=== PATIENT | female | born 1990 | race African-American/Black ===

== ENCOUNTER 2018-04-19 23:07 | Emergency (ER) | payer MEDICAID ==
[2018-04-20] MEDS ORDERED: IBUPROFEN 600 MG TABLET PO ONE (01:10)
[2018-04-20] MEDS ORDERED: CIPROFLOXACIN HCL/DEXAMETH OTIC DROP 7.5 ML AS ONE (01:10)
--- NOTE | 2018-04-20 01:15 | ER Document Report ---
ED ENT - General Chief Complaint: Ear Pain Stated Complaint: EAR PAIN Time Seen by Provider: 04/20/18 01:05 Mode of Arrival: Ambulatory Information source: Patient - HPI Patient complains to provider of: Ear problem Notes: Patient is here with complaints of left ear pain. The pain is been present for the last few days. Pain is worse with movement of the ear. No injury. No fever. No recent URI. She denies any nausea, vomiting, diarrhea. No dizziness. She has had an occasional headache associated with this. No significant headache now. No blurred or loss vision. No unilateral numbness, to, weakness. She denies any recent swimming. No other complaints at this time. - Related Data Allergies/Adverse Reactions: No Known Allergies Allergy (Unverified 04/19/18 23:10) Past Medical History - Social History Smoking Status: Unknown if Ever Smoked Family History: Reviewed & Not Pertinent Review of Systems - Review of Systems -: Yes All other systems reviewed and negative Physical Exam - Vital signs Vitals: Temp Pulse Resp BP Pulse Ox 98.8 F 53 L 14 130/72 H 100 04/20/18 00:04 04/20/18 00:04 04/20/18 00:04 04/20/18 00:04 04/20/18 00:04 - Notes Notes: GENERAL: alert, cooperative, nontoxic, no distress. HEAD: normocephalic, atraumatic EYES: conjunctiva pink without discharge, no external redness or swelling. EARS: no external swelling, no external redness, no mastoid redness, swelling, tenderness. Swelling and redness to the left ear canal with tenderness to palpation of the left tragus. TMs pearly zepeda, no redness, no bulging, normal landmarks, no perforation. Preauricular lymphadenopathy noted. NOSE: atraumatic, no external swelling. clear rhinorrhea noted. MOUTH/THROAT: mucous membranes moist and pink, posterior pharynx without erythema, swelling, exudate. No trismus or drooling. NECK: soft, supple, full range of motion, no meningismus. CHEST: no distress, lungs clear and equal throughout. No wheezing, rales, rhonchi. CARDIAC: regular rate and rhythm, no murmur, normal capillary refill, normal pulses. No peripheral edema noted. BACK: full range of motion, no CVA tenderness. EXTREMITIES: full range of motion of all extremities. No redness, no swelling. NEURO: alert and oriented A&O3, no focal deficits, full range of motion of all extremities. PYSCH: appropriate mood, affect. Patient is cooperative. SKIN: pink, warm, dry, no rash. Course - Re-evaluation Re-evalutation: 04/20/18 01:12 Patient is nontoxic appearing with stable vitals. Patient is here with complaints of left ear pain. On exam she is noted to have a left otitis externa. No otitis media. No perforation. No sign of mastoiditis. She is a febrile and nontoxic. Patient was given ibuprofen and will be given Ciprodex for her ear. Follow-up if not better in the next 3-5 days, sooner for worsening pain, fever, redness or swelling to the outside of the ear, persistent vomiting, or for any further concerns. The patient's emergency department workup and current diagnosis were explained to the patient and or family. Follow-up instructions were provided. Medications if prescribed were discussed. Instructions for when to return to the emergency department including specific worrisome symptoms were discussed with the patient and/or family. The patient is noted to have elevated blood pressure during today's emergency department visit. The patient was informed of this finding. The patient was instructed that this may be related to pre-hypertension and requires further evaluation with a primary care provider. The patient has no hypertensive symptoms at this time. - Vital Signs Vital signs: Temp Pulse Resp BP Pulse Ox 98.8 F 53 L 14 130/72 H 100 04/20/18 00:04 04/20/18 00:04 04/20/18 00:04 04/20/18 00:04 04/20/18 00:04 Discharge - Discharge Clinical Impression: Left otitis externa Qualifiers: Otitis externa type: diffuse Chronicity: acute Qualified Code(s): H60.312 - Diffuse otitis externa, left ear Condition: Stable Disposition: HOME, SELF-CARE Instructions: Use of Ear Drops ([facility]), Otitis Externa ([facility]), Oral Narcotic Medication ([facility]) Additional Instructions: Take medication as prescribed. Do not put anything in her ear. Follow-up if not improving in the next 3-5 days, sooner for worsening pain, fever, numbness, tingling, weakness, persistent vomiting, redness, swelling to the outside of the ear, or for any further concerns. Your blood pressure was elevated during today's visit. Have this rechecked with your doctor. The medication you were prescribed today may cause drowsiness. Do not drive or operate heavy machinery while taking this medication. Prescriptions: Ciprofloxacin HCl/Dexameth [Ciprodex Otic Suspension 7.5 ml Bottle] 4 drop OT BID #1 bottle Hydrocodone/Acetaminophen [[place] 5-325 mg Tablet] 2 tab PO Q6H PRN #8 tab PRN Reason: Forms: Elevated Blood Pressure, Smoking Cessation Education Referrals: FLORY BURR MD [AML ANALYST] - Follow up as needed BALDEMAR BUNCH DO [ASSOCIATE] - Follow up as needed [facility] [Provider Group] - Follow up as needed
[2018-04-20 01:45] VITALS: BP 129/83
== END 2018-04-20 01:45 | disposition home or self-care (01) ==
LOC: ER 23:07
DX: H60.312 Diffuse otitis externa, left ear (principal)
CPT/HCPCS: 99282; J3490 ×2

== ENCOUNTER 2018-11-10 07:47 | Emergency (ER) | payer MEDICAID ==
[2018-11-10] MEDS ORDERED: CEFTRIAXONE INJ 250 MG VIAL IM ONE (08:42)
[2018-11-10] MEDS ORDERED: LIDOCAINE 1% INJ-PF (10 MG/ML) 30 ML SDV INJ ONE (08:42)
[2018-11-10] MEDS ORDERED: AZITHROMYCIN 250 MG TABLET PO ONE (08:43)
[2018-11-10 08:58] LABS: APPEARANCE,URINE SLIGHTLY-CLOUDY; BILIRUBIN,URINE NEGATIVE (NEGATIVE); COLOR,URINE YELLOW; GLUCOSE, URINE NEGATIVE (NEGATIVE); KETONES,URINE NEGATIVE (NEGATIVE); LEUKOCYTE ESTERASE,URINE SMALL (NEGATIVE); NITRITE,URINE NEGATIVE (NEGATIVE); PROTEIN,URINE NEGATIVE (NEGATIVE); UROBILINOGEN,URINE NEGATIVE mg/dL (<2.0)
--- NOTE | 2018-11-10 08:58 | ER Document Report ---
HPI - HPI Time Seen by Provider: 11/10/18 08:11 Pain Level: Denies Notes: Patient is an otherwise healthy 20-year-old female who presents with chief complaints of possible STD exposure. She states that her boyfriend called her and told her that he was seen and treated for either chlamydia or gonorrhea. She denies having any abnormal vaginal discharge or pelvic pain. - CONSTITUTIONAL Constitutional: DENIES: Fever, Chills - REPRODUCTIVE Reproductive: DENIES: : Past Medical History - General Information source: Patient - Social History Smoking Status: Never Smoker Chew tobacco use (# tins/day): No Frequency of alcohol use: None Drug Abuse: None Family History: Reviewed & Not Pertinent Patient has suicidal ideation: No Patient has homicidal ideation: No - Medical History Medical History: Negative Renal/ Medical History: Denies: Hx Peritoneal Dialysis Surgical Hx: Negative - Immunizations Immunizations up to date: Yes Vertical Provider Document - CONSTITUTIONAL Notes: PHYSICAL EXAMINATION: GENERAL: Well-appearing, well-nourished and in no acute distress. HEAD: Atraumatic, normocephalic. EYES: Pupils equal round extraocular movements intact, conjunctiva are normal. ENT: Nares patent NECK: Normal range of motion LUNGS: No respiratory distress Musculoskeletal: Normal range of motion NEUROLOGICAL: Normal speech, normal gait. PSYCH: Normal mood, normal affect. SKIN: Warm, Dry, normal turgor, no rashes or lesions noted. - INFECTION CONTROL TRAVEL OUTSIDE OF THE [place] IN LAST 30 DAYS: No Course - Re-evaluation Re-evalutation: 11/10/18 08:56 Patient will be treated prophylactically for both chlamydia and gonorrhea. Will call patient if results are positive. Patient verbalizes understanding of abstinence for the next 7 days. - Vital Signs Vital signs: Temp Pulse Resp BP Pulse Ox 97.8 F 56 L 16 121/71 99 11/10/18 07:51 11/10/18 07:51 11/10/18 07:51 11/10/18 07:51 11/10/18 07:51 Discharge - Discharge Clinical Impression: Exposure to STD Condition: Stable Disposition: HOME, SELF-CARE Additional Instructions: You have been treated for possible exposure to chlamydia and gonorrhea. The results of your tests will take approximately 2 hours to come back. I will call you this afternoon if they are positive. Please refrain from unprotected sexual intercourse for at least 7 days. Please assure that your partner has received appropriate treatment. You may follow-up with the health department for additional STD testing. Referrals: BALDEMAR RUIZ PA-C [Primary Care Provider] - Follow up as needed
[2018-11-10 09:15] VITALS: BP 119/84
[2018-11-10 10:28] LABS: CHLAM PCR NOT DETECTED (NOT DETECT); GON PCR DETECTED (NOT DETECT)
== END 2018-11-10 09:15 | disposition home or self-care (01) ==
LOC: ER 07:47
DX: Z20.2 Contact with and (suspected) exposure to infections with a predominantly sexual mode of transmission (principal)
CPT/HCPCS: 99283; 96372; 81001; 87491; 87591; Q0144; J3490; J0696

== ENCOUNTER 2018-11-26 04:20 | Emergency (ER) | payer MEDICAID ==
--- NOTE | 2018-11-26 04:40 | ER Document Report ---
ED General - General Chief Complaint: ETOH Abuse Stated Complaint: ALTERED MENTAL STATUS Time Seen by Provider: 11/26/18 04:39 Mode of Arrival: Ambulatory Information source: Patient Cannot obtain history due to: Intoxicated Notes: Patient is a 28-year-old female, currently 7 weeks , who presents with alcohol intoxication. Patient denies abdominal pain, reports only drinking "liquor," denies drug use. She denies vaginal bleeding or discharge. TRAVEL OUTSIDE OF THE [place] IN LAST 30 DAYS: No - HPI Onset: Just prior to arrival Onset/Duration: Sudden Quality of pain: No pain Severity: Mild Pain Level: Denies Associated symptoms: Drooling Exacerbated by: Denies Relieved by: Denies Similar symptoms previously: No Recently seen / treated by doctor: No - Related Data Allergies/Adverse Reactions: No Known Allergies Allergy (Unverified 04/19/18 23:10) Past Medical History - General Information source: Patient Cannot obtain history due to: Intoxicated - Social History Smoking Status: Unknown if Ever Smoked Chew tobacco use (# tins/day): No Frequency of alcohol use: Social Drug Abuse: None Lives with: Family Family History: Reviewed & Not Pertinent Patient has suicidal ideation: No Patient has homicidal ideation: No - Past Medical History Cardiac Medical History: Reports: None Pulmonary Medical History: Reports: None EENT Medical History: Reports: None Neurological Medical History: Reports: None Endocrine Medical History: Reports: None Renal/ Medical History: Reports: None. Denies: Hx Peritoneal Dialysis Malignancy Medical History: Reports: None GI Medical History: Reports: None Musculoskeletal Medical History: Reports None Skin Medical History: Reports None Psychiatric Medical History: Reports: None Traumatic Medical History: Reports: None Infectious Medical History: Reports: None Surgical Hx: Negative Past Surgical History: Reports: None - Immunizations Immunizations up to date: Yes Hx Diphtheria, Pertussis, Tetanus Vaccination: Yes History of Influenza Vaccine for 08/2017 - 01/2018 Season: Unknown Review of Systems - Review of Systems Constitutional: No symptoms reported, Other - Intoxicated EENT: No symptoms reported Cardiovascular: No symptoms reported Respiratory: No symptoms reported Gastrointestinal: No symptoms reported Genitourinary: No symptoms reported Female Genitourinary: No symptoms reported Musculoskeletal: No symptoms reported Skin: No symptoms reported Hematologic/Lymphatic: No symptoms reported Neurological/Psychological: No symptoms reported -: Yes All other systems reviewed and negative Physical Exam - Vital signs Vitals: Pulse Resp BP Pulse Ox 89 24 H 113/73 100 11/26/18 04:21 11/26/18 04:21 11/26/18 04:21 11/26/18 04:21 Interpretation: Normal - Notes Notes: Well-appearing in no acute distress - General General appearance: Appears well, Alert, Other - Intoxicated but easily arousable In distress: None - HEENT Head: Normocephalic, Atraumatic Eyes: Normal Pupils: PERRL - Respiratory Respiratory status: No respiratory distress Chest status: Nontender Breath sounds: Normal Chest palpation: Normal - Cardiovascular Rhythm: Regular Heart sounds: Normal auscultation Murmur: No - Abdominal Inspection: Normal Distension: No distension Bowel sounds: Normal Tenderness: Nontender Organomegaly: No organomegaly - Rectal Notes: Deferred - Genitourinary Notes: Deferred - Back Back: Normal, Nontender - Extremities General upper extremity: Normal inspection, Nontender, Normal color, Normal ROM, Normal temperature General lower extremity: Normal inspection, Nontender, Normal color, Normal ROM, Normal temperature, Normal weight bearing. No: Katerina's sign - Neurological Neuro grossly intact: Yes Cognition: Normal Orientation: AAOx4 Hortencia Coma Scale Eye Opening: Spontaneous [place] Coma Scale Verbal: Oriented [place] Coma Scale Motor: Obeys Commands Hortencia Coma Scale Total: 15 Speech: Normal Motor strength normal: LUE, RUE, LLE, RLE Sensory: Normal - Psychological Associated symptoms: Normal affect, Normal mood - Skin Skin Temperature: Warm Skin Moisture: Dry Skin Color: Normal Course - Re-evaluation Re-evalutation: 11/26/18 05:18 Patient is clearly intoxicated but is arousable. She reports being aware that she is and drank alcohol anyway. Will give IV fluids, obtain labs, and reassess for discharge when the patient is sober or has a responsible alliance party. 11/26/18 06:35 Labs still pending. Plan is to medically clear patient once she has been observed and is sober. Signout has been given to Dr. Flores. - Vital Signs Vital signs: Temp Pulse Resp BP Pulse Ox 97.7 F 89 24 H 113/73 100 11/26/18 04:30 11/26/18 04:21 11/26/18 04:21 11/26/18 04:21 11/26/18 04:21 - Laboratory Result Diagrams: 11/26/18 04:22 11/26/18 04:22 Laboratory results interpreted by me: 11/26/18 11/26/18 04:22 04:22 Lymphocytes % 47.3 H Beta HCG, Quant 2663.50 H Acetaminophen < 10 L - EKG Interpretation by Me EKG shows normal: Sinus rhythm Rate: Normal Rhythm: NSR [place]/QRS: No: Right axis deviation, Left axis deviation, RBBB, LBBB, IVCD, LAHB/LAFB, LPHB/LPFB, Bifasicular block P Waves: No: ANNELISE, LAE, Absent, AV Dissociation, Other Heart block present: No: 1st Degree, Mobitz 1, Mobitz 2, CHB (3rd degree block) When compared to previous EKG there are: Previous EKG unavailable - Transfer of Care Care transferred to following provider: Dr. Flores Notes: 11/26/18 06:35 Await labs, urine, and reassess the patient when sober and back to normal mental status. Discharge - Discharge Clinical Impression: Alcohol abuse affecting Qualifiers: Trimester: first trimester Qualified Code(s): O99.311 - Alcohol use complicating , first trimester; F10.10 - Alcohol abuse, uncomplicated Condition: Good Referrals: BALDEMAR RUIZ PA-C [Primary Care Provider] - Follow up as needed
[2018-11-26] MEDS ORDERED: NORMAL SALINE 1000 ML 1,000 ML IV ONE (05:22)
[2018-11-26 05:40] LABS: ABSOLUTE EOSINOPHILS # (AUTO) 0.2 10^3/uL (0.0-0.6); ABSOLUTE LYMPHOCYTES (AUTO) 4.6 10^3/uL (0.5-4.7); ABSOLUTE MONOCYTES (AUTO) 0.7 10^3/uL (0.1-1.4); ABSOLUTE NEUT (AUTO) 4.1 10^3/uL (1.7-8.2); BASOPHILS % (AUTO) 0.4 % (0-2); EOSINOPHILS % (AUTO) 1.9 % (0-6); HEMATOCRIT 39.7 % (36.0-47.0); HEMOGLOBIN 13.4 g/dL (12.0-15.5); LYMPHOCYTES % (AUTO) 47.3 % (13-45); MEAN CORPUSCULAR HEMOGLOBIN 29.2 pg (27.0-33.4); MEAN CORPUSCULAR HGB CONC 33.8 g/dL (32.0-36.0); MEAN CORPUSCULAR VOLUME 86 fl (80-97); MONOCYTES % (AUTO) 7.6 % (3-13); PLATELET COUNT 310 10^3/uL (150-450); RED BLOOD COUNT 4.59 10^6/uL (3.72-5.28); RED CELL DISTRIBUTION WIDTH 13.4 % (11.5-14.0); SEGMENTED NEUTROPHILS % (AUTO) 42.8 % (42-78); TOTAL CELLS COUNTED % (AUTO) 100 %; WHITE BLOOD COUNT 9.6 10^3/uL (4.0-10.5)
[2018-11-26 06:14] LABS: ALANINE AMINOTRANSFERASE 23 U/L (9-52); ALBUMIN 4.6 g/dL (3.5-5.0); ALCOHOL 164 mg/dL (NONE DETECTED); ALKALINE PHOSPHATASE 62 U/L (38-126); ANION GAP 13 (5-19); ASPARTATE AMINO TRANSFERASE 26 U/L (14-36); BILIRUBIN,DIRECT 0.3 mg/dL (0.0-0.4); BILIRUBIN,TOTAL 1.2 mg/dL (0.2-1.3); BLOOD UREA NITROGEN 17 mg/dL (7-20); CALCIUM 9.3 mg/dL (8.4-10.2); CARBON DIOXIDE 24 mmol/L (22-30); CHLORIDE 105 mmol/L (98-107); GLUCOSE 95 mg/dL (75-110); POTASSIUM 4.1 mmol/L (3.6-5.0); SODIUM 141.8 mmol/L (137-145); TOTAL PROTEIN 8.2 g/dL (6.3-8.2)
[2018-11-26] MEDS ORDERED: METOCLOPRAMIDE HCL INJ/PF 10 MG/2 ML SDV IV ONE (06:26)
[2018-11-26] MEDS ORDERED: MAG HYDROX/AL HYDROX/SIMETH SUSP 30 ML UDCUP PO ONE (06:26)
[2018-11-26 06:30] LABS: ACETAMINOPHEN < 10 ug/mL (10-30)
[2018-11-26 11:23] VITALS: BP 114/65
--- NOTE | 2018-11-26 14:16 | EKG REPORT ---
SEVERITY:- BORDERLINE ECG - SINUS RHYTHM PROBABLE LEFT ATRIAL ABNORMALITY : Confirmed by: Lucia Mandel MD 26-Nov-2018 14:16:32
== END 2018-11-26 11:23 | disposition home or self-care (01) ==
LOC: ER 04:20
DX: O99.311 Alcohol use complicating pregnancy, first trimester (principal); F10.120 Alcohol abuse with intoxication, uncomplicated; Z3A.01 Less than 8 weeks gestation of pregnancy
CPT/HCPCS: 93005; 99284; 96360; 36415; 80307 ×2; 84702; 85025; 80053; 93010; J7030

== ENCOUNTER 2018-12-29 15:00 | Emergency (ER) | payer MEDICAID ==
--- NOTE | 2018-12-29 15:34 | ER Document Report ---
ED Medical Screen (RME) - General Chief Complaint: Vag Bleeding, +preg <12wks Stated Complaint: VAGINAL BLEEDING Time Seen by Provider: 12/29/18 15:30 Primary Care Provider: BALDEMAR RUIZ PA-C [Primary Care Provider] - Follow up as needed TRAVEL OUTSIDE OF THE [place] IN LAST 30 DAYS: No - HPI Notes: 12/29/18 15:34 Surgical on the continues to have vaginal bleeding - Related Data Allergies/Adverse Reactions: No Known Allergies Allergy (Verified 12/29/18 15:01) Past Medical History Renal/ Medical History: Denies: Hx Peritoneal Dialysis - Immunizations Immunizations up to date: Yes Hx Diphtheria, Pertussis, Tetanus Vaccination: Yes History of Influenza Vaccine for 08/2017 - 01/2018 Season: Unknown Review of Systems - Review of Systems Female Genitourinary: Vaginal bleeding Physical Exam - Vital signs Vitals: Temp Pulse Resp BP Pulse Ox 99.1 F 66 16 121/62 98 12/29/18 15:11 12/29/18 15:11 12/29/18 15:11 12/29/18 15:11 12/29/18 15:11 Course - Vital Signs Vital signs: Temp Pulse Resp BP Pulse Ox 99.1 F 66 16 121/62 98 12/29/18 15:11 12/29/18 15:11 12/29/18 15:11 12/29/18 15:11 12/29/18 15:11 Doctor's Discharge - Discharge Referrals: BALDEMAR RUIZ PA-C [Primary Care Provider] - Follow up as needed
--- NOTE | 2018-12-29 16:40 | ER Document Report ---
ED GI/ - General Chief Complaint: Vag Bleeding, +preg <12wks Stated Complaint: VAGINAL BLEEDING Time Seen by Provider: 12/29/18 15:30 Primary Care Provider: [facility] [Provider Group] - Follow up tomorrow BALDEMAR RUIZ PA-C [Primary Care Provider] - Follow up as needed Mode of Arrival: Ambulatory Information source: Patient Notes: 28-year-old female presented to ED for complaint of vaginal bleeding pelvic pain and irritation since her surgical on December 26. She states yesterday she did not have a lot of bleeding but today she has soaked about 6 pads with big clots. Patient was tested for GC and chlamydia in October 2018 and was po sitive for gonorrhea we will recheck the gonorrhea. Also do a UA as she is having pelvic pain. She is alert oriented respirations regular and unlabored speaking in full sentences walks with a even steady gait. TRAVEL OUTSIDE OF THE [place] IN LAST 30 DAYS: No - HPI Patient complains to provider of: Vaginal bleeding Onset: Other - Patient had surgical on the did not have any pelvic pain or bleeding yesterday but it soaked 6 pads today Timing/Duration: Intermittent Quality of pain: Cramping, Dull Severity at maximum: Moderate Severity in ED: Moderate Pain Level: 2 Location: Pelvis Vaginal bleeding (Compared to normal period): Heavier, Passing clots LMP: Surgical on 12/26/2018 Associated symptoms: Other - Pelvic pain vaginal bleeding Exacerbated by: Movement, Walking Relieved by: Denies Similar symptoms previously: Yes Recently seen / treated by doctor: Yes - Related Data Allergies/Adverse Reactions: No Known Allergies Allergy (Verified 12/29/18 15:01) Past Medical History - General Information source: Patient Last Menstrual Period: 10-21-19 - Social History Smoking Status: Never Smoker Frequency of alcohol use: Social Drug Abuse: None Lives with: Family Family History: Reviewed & Not Pertinent Patient has suicidal ideation: No Patient has homicidal ideation: No - Past Medical History Cardiac Medical History: Reports: None Pulmonary Medical History: Reports: None EENT Medical History: Reports: None Neurological Medical History: Reports: None Endocrine Medical History: Reports: None Renal/ Medical History: Reports: Hx Pelvic Inflammatory Disease Malignancy Medical History: Reports: None GI Medical History: Reports: None Musculoskeletal Medical History: Reports None Skin Medical History: Reports None Psychiatric Medical History: Reports: None Traumatic Medical History: Reports: None Infectious Medical History: Reports: None Past Surgical History: Reports: Hx Section - Surgical - Immunizations Immunizations up to date: Yes Hx Diphtheria, Pertussis, Tetanus Vaccination: Yes Review of Systems - Review of Systems Constitutional: No symptoms reported EENT: No symptoms reported Cardiovascular: No symptoms reported Respiratory: No symptoms reported Gastrointestinal: No symptoms reported Genitourinary: No symptoms reported Female Genitourinary: Vaginal bleeding, Other - Pain Musculoskeletal: No symptoms reported Skin: No symptoms reported Hematologic/Lymphatic: No symptoms reported Neurological/Psychological: No symptoms reported -: Yes All other systems reviewed and negative Physical Exam - Vital signs Vitals: Temp Pulse Resp BP Pulse Ox 99.1 F 66 16 121/62 98 12/29/18 15:11 12/29/18 15:11 12/29/18 15:11 12/29/18 15:11 12/29/18 15:11 Interpretation: Normal - General General appearance: Appears well, Alert - HEENT Head: Normocephalic, Atraumatic Eyes: Normal Pupils: PERRL - Respiratory Respiratory status: No respiratory distress Chest status: Nontender Breath sounds: Normal Chest palpation: Normal - Cardiovascular Rhythm: Regular Heart sounds: Normal auscultation Murmur: No - Abdominal Inspection: Normal Distension: No distension Bowel sounds: Normal Tenderness: Nontender Organomegaly: No organomegaly - Genitourinary External exam: Normal Speculum exam: Cervix open Vaginal bleeding: Mild - With large amount of clots [place]imanuel exam: Normal - Back Back: Normal, Nontender - Extremities General upper extremity: Normal inspection, Nontender, Normal color, Normal ROM, Normal temperature General lower extremity: Normal inspection, Nontender, Normal color, Normal ROM, Normal temperature, Normal weight bearing. No: Katerina's sign - Neurological Neuro grossly intact: Yes Cognition: Normal Orientation: AAOx4 [place] Coma Scale Eye Opening: Spontaneous [place] Coma Scale Verbal: Oriented [place] Coma Scale Motor: Obeys Commands H[place] Coma Scale Total: 15 Speech: Normal Motor strength normal: LUE, RUE, LLE, RLE Sensory: Normal - Psychological Associated symptoms: Normal affect, Normal mood - Skin Skin Temperature: Warm Skin Moisture: Dry Skin Color: Normal Course - Re-evaluation Re-evalutation: 12/29/18 19:08 This labs and ultrasound with Dr. Dos Santos who stated that she did consult with JEEPER OPERATOR. I consulted Dr[facility] Del[facility]zm[facility]. He states patient should receive Cytotec 0.8 mg by vagina tonight and should follow-up with CARVING MACHINE OPERATOR tomorrow by telephone first thing in the morning to be seen tomorrow. Patient was given a copy of all labs and ultrasound to take with her to CARVING MACHINE OPERATOR. She does have retained products of conception and has dropped her hemoglobin from 13-10 since November 26. She did have a surgical on December 26 in [place]. Patient verbalized understanding and agreement with treatment plan. - Vital Signs Vital signs: Temp Pulse Resp BP Pulse Ox 99.5 F 59 L 20 119/58 L 100 12/29/18 19:39 12/29/18 19:39 12/29/18 19:39 12/29/18 19:39 12/29/18 19:39 - Laboratory Result Diagrams: 12/29/18 16:31 12/29/18 16:31 Laboratory results interpreted by me: 12/29/18 12/29/18 12/29/18 16:31 16:31 16:58 RBC 3.54 L Hgb 10.2 L Hct 30.4 L Beta HCG, Quant 9931.90 H Urine Blood MODERATE H Urine Urobilinogen 2.0 H - Diagnostic Test Radiology reviewed: Image reviewed, Reports reviewed Discharge - Discharge Clinical Impression: retained products of conception after abortio, Vaginal bleeding Condition: Stable Disposition: HOME, SELF-CARE Additional Instructions: Your ultrasound shows that you have retained products of conception from your surgical . You will be given a medication called Cytotec which will hopefully help you to pass these products of conception. It is very important that you follow-up with CARVING MACHINE OPERATOR as instructed to ensure that all of these products have passed and your vaginal bleeding will stop. I have given you a copy of your lab reports and ultrasound to take with you to the appointment with CARVING MACHINE OPERATOR. Acetaminophen Acetaminophen may be taken for pain relief or fever control. It's much safer than aspirin, offering a wider range of "safe" dosages. It is safe during . Some brand names are Tylenol, Panadol, Datril, Anacin 3, Tempra, and Liquiprin. Acetaminophen can be repeated every four hours. The following are maximum recommended dosages: WEIGHT Dose Drops Elixir Chewable(80mg) (LBS.) drprs=droppers tsp=teaspoon 6 40 mg .4 ml (1/2) 6-11 80 mg .8 ml (full) 1/2 tsp 1 tab 12-16 120 mg 1 1/2 drprs 3/4 tsp 1 1/2 tabs 17-23 160 mg 2 drprs 1 tsp 2 tabs 24-30 240 mg 3 drprs 1 1/2 tsp 3 tabs 30-35 320 mg 2 tsp 4 tabs 36-41 360 mg 2 1/4 tsp 4 1/2 tabs 42-47 400 mg 2 1/2 tsp 5 tabs 48-53 480 mg 3 tsp 6 tabs 54-59 520 mg 3 1/4 tsp 6 1/2 tabs 60-64 560 mg 3 1/2 tsp 7 tabs 65-70 600 mg 3 3/4 tsp 7 1/2 tabs 71-76 640 mg 4 tsp 8 tabs 77-82 720 mg 4 1/2 tsp 9 tabs 83-88 800 mg 5 tsp 10 tabs >89 pounds or adults 650 mg to 900 mg Acetaminophen can be repeated every four hours. Maximum daily dose not to exceed 4000 mg. These maximum recommended dosages are slightly higher than the dosages written on the product container, but these dosages are very safe and well below the toxic dosage for acetaminophen. FOLLOW-UP CARE: Please call [facility] first thing in the morning and schedule a follow-up visit tomorrow for your retained products of conception. Please let them know that you have been given Cytotec today to your vagina. It is very important that you be seen tomorrow as we discussed. Please take your labs and ultrasound reports with you. If you have been referred to a physician for follow-up care, call the physicians office for an appointment as you were instructed or within the next two days. If you experience worsening or a significant change in your symptoms, notify the physician immediately or return to the Emergency Department at any t [place] for re-evaluation. Forms: Return to Work Referrals: BALDEMAR RUIZ PA-C [Primary Care Provider] - Follow up as needed [facility] [Provider Group] - Follow up tomorrow
[2018-12-29 16:42] LABS: ABSOLUTE EOSINOPHILS # (AUTO) 0.2 10^3/uL (0.0-0.6); ABSOLUTE LYMPHOCYTES (AUTO) 1.6 10^3/uL (0.5-4.7); ABSOLUTE MONOCYTES (AUTO) 0.6 10^3/uL (0.1-1.4); ABSOLUTE NEUT (AUTO) 4.4 10^3/uL (1.7-8.2); BASOPHILS % (AUTO) 0.3 % (0-2); EOSINOPHILS % (AUTO) 2.8 % (0-6); HEMATOCRIT 30.4 % (36.0-47.0); HEMOGLOBIN 10.2 g/dL (12.0-15.5); LYMPHOCYTES % (AUTO) 23.8 % (13-45); MEAN CORPUSCULAR HEMOGLOBIN 28.8 pg (27.0-33.4); MEAN CORPUSCULAR HGB CONC 33.6 g/dL (32.0-36.0); MEAN CORPUSCULAR VOLUME 86 fl (80-97); MONOCYTES % (AUTO) 9.4 % (3-13); PLATELET COUNT 236 10^3/uL (150-450); RED BLOOD COUNT 3.54 10^6/uL (3.72-5.28); SEGMENTED NEUTROPHILS % (AUTO) 63.7 % (42-78); TOTAL CELLS COUNTED % (AUTO) 100 %; WHITE BLOOD COUNT 6.9 10^3/uL (4.0-10.5)
[2018-12-29 17:01] LABS: ANION GAP 7 (5-19); BLOOD UREA NITROGEN 16 mg/dL (7-20); CALCIUM 9.1 mg/dL (8.4-10.2); CARBON DIOXIDE 27 mmol/L (22-30); CHLORIDE 106 mmol/L (98-107); GLUCOSE 110 mg/dL (75-110); POTASSIUM 4.2 mmol/L (3.6-5.0); SODIUM 139.9 mmol/L (137-145)
[2018-12-29 17:14] LABS: APPEARANCE,URINE CLEAR; BILIRUBIN,URINE NEGATIVE (NEGATIVE); COLOR,URINE YELLOW; GLUCOSE, URINE NEGATIVE (NEGATIVE); KETONES,URINE NEGATIVE (NEGATIVE); LEUKOCYTE ESTERASE,URINE NEGATIVE (NEGATIVE); NITRITE,URINE NEGATIVE (NEGATIVE); PROTEIN,URINE NEGATIVE (NEGATIVE); RBCS (WET MOUNT) 4+ RBCS SEEN; T.VAGINALIS (WET MOUNT) NO TRICHOMONAS SEEN; URINE SPECIFIC GRAVITY 1.034; WBCS (WET MOUNT) FEW WBCS SEEN; YEAST (WET MOUNT) NO YEAST SEEN
--- NOTE | 2018-12-29 18:28 | RADIOLOGY REPORT (SQ) ---
EXAM DESCRIPTION: U/S NON OB PEL TV W/DOPPLER COMPLETED DATE/TIME: 12/29/2018 6:18 pm REASON FOR STUDY: post 12/26/18 pain bleeding COMPARISON: None. TECHNIQUE: Dynamic and static grayscale images acquired of the pelvis via transvaginal approach and recorded on PACS. Additional selected color Doppler and spectral images recorded. LIMITATIONS: None. FINDINGS: UTERUS: Contour normal. No mass. ENDOMETRIAL STRIPE: Thickened, heterogeneous endometrium measuring 3.7 cm. CERVIX: No nabothian cysts. RIGHT OVARY AND DOPPLER: Normal size. No worrisome masses. Normal arterial vascular flow without evid ence for torsion. LEFT OVARY AND DOPPLER: Nonvisualized. FREE FLUID: None noted. OTHER: No other significant finding. MEASUREMENTS: UTERUS: 12.0 x 6.6 x 8.0 cm ENDOMETRIAL STRIPE: 3.7 cm RIGHT OVARY: 2.5 x 2.2 x 3.4 cm LEFT OVARY: Nonvisualized. IMPRESSION: Thickened, heterogeneous endometrium measuring 3.7 cm, concerning for retained products of conception. TECHNICAL DOCUMENTATION: JOB ID: [id number] [employer]- All Rights Reserved Rev-04/12 Reading location - IP/workstation name: [email or web address]
[2018-12-29 18:43] LABS: CHLAM PCR NOT DETECTED (NOT DETECT); GON PCR NOT DETECTED (NOT DETECT)
[2018-12-29] MEDS ORDERED: MISOPROSTOL 0.2 MG TABLET PV ONE (18:51)
[2018-12-29] MEDS ORDERED: ACETAMINOPHEN 325 MG TABLET PO ONE (18:55)
[2018-12-29 19:40] VITALS: BP 119/58
== END 2018-12-29 19:47 | disposition home or self-care (01) ==
LOC: ER 15:00
DX: O07.39 Failed attempted termination of pregnancy with other complications (principal); O03.4 Incomplete spontaneous abortion without complication; R10.2 Pelvic and perineal pain
CPT/HCPCS: 99284; 36415; 87210; 84702; 85025; 80048; 81001; 87491; 87591; 76830; 93976; J3490

== ENCOUNTER 2019-12-07 02:28 | Emergency (ER) | payer MEDICAID ==
--- NOTE | 2019-12-07 02:41 | ER Document Report ---
ED Substance Abuse / Acc. OD <ALLEN FUENTES - Last Filed: 12/07/19 12:22> - General Mode of Arrival: Medic Information source: Emergency Med Personnel Cannot obtain history due to: Intoxicated - subject uncopperative with exam and history taking. arousable and moves all extremeities. TRAVEL OUTSIDE OF THE [place] IN LAST 30 DAYS: No - HPI Patient complains to provider of: Alcohol abuse Onset: This evening Onset/Duration: Gradual Severity: Moderate <LALA VILLEGAS - Last Filed: 12/08/19 07:52> - General Chief Complaint: ETOH Abuse Stated Complaint: ETOH/VOMITING Time Seen by Provider: 12/07/19 02:41 Primary Care Provider: BALDEMAR RUIZ PA-C [Primary Care Provider] - Follow up as needed Notes: Uncooperative and combative on arrival requiring 4 point restraint. Aware of environment and and once in 4 pt restraints , patient went to sleep Terefore history and physical exams were limited. (LALA VILLEGAS) - Related Data Allergies/Adverse Reactions: No Known Allergies Allergy (Verified 12/29/18 15:01) Past Medical History - Social History Smoking Status: Unknown if Ever Smoked Family History: Reviewed & Not Pertinent Renal/ Medical History: Reports: Hx Pelvic Inflammatory Disease. Denies: Hx Peritoneal Dialysis Past Surgical History: Reports: Hx Section - Surgical - Immunizations Immunizations up to date: Yes Hx Diphtheria, Pertussis, Tetanus Vaccination: Yes <LALA VILLEGAS - Last Filed: 12/08/19 07:52> Physical Exam - HEENT Head: Normocephalic, Atraumatic Eyes: Normal Pupils: PERRL - Respiratory Respiratory status: No respiratory distress Breath sounds: Decreased air movement - Neurological Neuro grossly intact: Yes Cognition: Normal Orientation: AAOx4 H[place] Coma Scale Eye Opening: Spontaneous [place] Coma Scale Verbal: Oriented [place] Coma Scale Motor: Obeys Commands Hortencia Coma Scale Total: 15 Speech: Normal Motor strength normal: LUE, RUE, LLE, RLE Sensory: Normal - Skin Skin Temperature: Warm Skin Moisture: Dry Skin Color: Normal Skin irregularity: other - Abrasions noted on left side of hemithorax <LALA VILLEGAS - Last Filed: 12/08/19 07:52> - Vital signs Vitals: Resp BP Pulse Ox 21 H 105/61 98 12/07/19 03:01 12/07/19 03:01 12/07/19 03:01 - Notes Notes: remained somnolent for past 5 hours. (ALLA VILLEGAS) Course - Laboratory Result Diagrams: 12/07/19 02:50 12/07/19 02:50 <ALLEN FUENTES - Last Filed: 12/07/19 12:22> - Laboratory Result Diagrams: 12/07/19 02:50 12/07/19 02:50 - Diagnostic Test Radiology reviewed: Image reviewed, Reports reviewed - Transfer of Care Care transferred to following provider: Transfer to Dr Tavera to evaluate patient once she is awake. <LALA VILLEGAS - Last Filed: 12/08/19 07:52> - Re-evaluation Re-evalutation: 12/07/19 08:22 Patient remains somnolent at this time. (LALA VILLEGAS) - Vital Signs Vital signs: Temp Pulse Resp BP Pulse Ox 97.5 F 69 21 H 110/57 L 99 12/07/19 09:00 12/07/19 10:03 12/07/19 12:31 12/07/19 12:31 12/07/19 12:31 - Laboratory Laboratory results interpreted by me: 12/07/19 12/07/19 12/07/19 02:50 02:50 05:20 Hgb 11.4 L Hct 35.3 L Lymph % (Auto) 51.8 H Seg Neutrophils % 40.0 L Chloride 109 H Calcium 8.1 L Ur Leukocyte Esterase TRACE H Salicylates < 1.0 L Acetaminophen < 10 L Discharge <ALLEN FUENTES - Last Filed: 12/07/19 12:22> <LALA VILLEGAS - Last Filed: 12/08/19 07:52> - Discharge Clinical Impression: Alcohol intoxication Qualifiers: Complication of substance-induced condition: uncomplicated Qualified Code(s): F10.920 - Alcohol use, unspecified with intoxication, uncomplicated Condition: Stable Disposition: HOME, SELF-CARE Additional Instructions: Acute Alcohol Intoxication Your evaluation revealed very high levels of alcohol. You can from drinking a large amount of alcohol rapidly! Further, there's the risk of falls, traffic accidents, and fights. A high portion (about 50 percent) of the serious injuries seen in hospital emergency rooms are caused by alcohol. Alcohol overdosage is usually due to an underlying emotional or psychiatric problem. You may benefit from counselling. If "binge" drinking is an ongoing problem for you, or if you drink ANY AMOUNT of alcohol EVERY day, you most likely have a tendency to alcoholism. You should avoid alcohol totally. We can refer you for treatment. Persons with alcohol problems are often also prone to other addictions -- you should discuss any use of medications or drugs with the doctor. You should be watched at home for the next several hours by someone who has not been drinking. Get extra fluids for the next 24 hours. Call the doctor if there is repeated vomiting, increasing headache, decreasing level of alertness, or any other worsening. AT ANY TIME, IF YOUR SYMPTOMS CHANGE SIGNIFICANTLY OR WORSEN OR YOU DEVELOP NEW SYMPTOMS, RETURN TO THE EMERGENCY DEPARTMENT IMMEDIATELY FOR RE-EVALUATION. Referrals: BALDEMAR RUIZ PA-C [Primary Care Provider] - Follow up as needed
[2019-12-07] MEDS ORDERED: RINGERS SOLUTION,LACTATED 1,000 ML IV ONE (02:53)
[2019-12-07 03:14] LABS: ABSOLUTE EOSINOPHILS # (AUTO) 0.1 10^3/uL (0.0-0.6); ABSOLUTE LYMPHOCYTES (AUTO) 3.1 10^3/uL (0.5-4.7); ABSOLUTE MONOCYTES (AUTO) 0.3 10^3/uL (0.1-1.4); ABSOLUTE NEUT (AUTO) 2.4 10^3/uL (1.7-8.2); BASOPHILS % (AUTO) 0.3 % (0-2); EOSINOPHILS % (AUTO) 2.1 % (0-6); HEMATOCRIT 35.3 % (36.0-47.0); HEMOGLOBIN 11.4 g/dL (12.0-15.5); LYMPHOCYTES % (AUTO) 51.8 % (13-45); MEAN CORPUSCULAR HEMOGLOBIN 28.4 pg (27.0-33.4); MEAN CORPUSCULAR HGB CONC 32.4 g/dL (32.0-36.0); MEAN CORPUSCULAR VOLUME 88 fl (80-97); MONOCYTES % (AUTO) 5.8 % (3-13); PLATELET COUNT 209 10^3/uL (150-450); RED BLOOD COUNT 4.03 10^6/uL (3.72-5.28); RED CELL DISTRIBUTION WIDTH 13.1 % (11.5-14.0); TOTAL CELLS COUNTED % (AUTO) 100 %; WHITE BLOOD COUNT 5.9 10^3/uL (4.0-10.5)
[2019-12-07 03:45] LABS: ALBUMIN 3.6 g/dL (3.5-5.0); ALCOHOL 262 mg/dL (NONE DETECTED); ALKALINE PHOSPHATASE 42 U/L (38-126); ANION GAP 10 (5-19); ASPARTATE AMINO TRANSFERASE 22 U/L (14-36); BILIRUBIN,DIRECT 0.1 mg/dL (0.0-0.4); BILIRUBIN,TOTAL 0.4 mg/dL (0.2-1.3); BLOOD UREA NITROGEN 14 mg/dL (7-20); CALCIUM 8.1 mg/dL (8.4-10.2); CARBON DIOXIDE 25 mmol/L (22-30); CHLORIDE 109 mmol/L (98-107); CREATINE KINASE 74 U/L (30-135); GLUCOSE 105 mg/dL (75-110); TOTAL PROTEIN 6.4 g/dL (6.3-8.2)
[2019-12-07 03:46] LABS: ACETAMINOPHEN < 10 ug/mL (10-30); SALICYLATE < 1.0 mg/dL (2.0-20.0)
--- NOTE | 2019-12-07 05:28 | RADIOLOGY REPORT (SQ) ---
EXAM DESCRIPTION: CT HEAD WITHOUT IV CONTRAST, CT CERVICAL SPINE WITHOUT IV CONTRAST COMPLETED DATE/TME: 12/07/2019 03:19 (accession [id number]), 12/07/2019 03:21 (accession [id number]) CLINICAL HISTORY: 29 years, Female, altered mental status/fall and struck head COMPARISON: None. Technique: Contiguous axial images of the brain were obtained without the administration of intravenous contrast. Coronal and sagittal reformats obtained and reviewed. This exam was performed according to our departmental dose-optimization program which includes use of Automated Exposure Control, adjustment of the mA and/or kV according to patient size and/or use of iterative reconstruction technique. Findings: Brain: No hemorrhage. No territorial infarct. No mass effect. No herniation. Ventricles: Within normal limits for patient's age. Bones: No acute osseous abnormality. Paranasal sinuses: Unremarkable. Mastoid air cells: Unremarkable. Soft tissues: No acute abnormality. IMPRESSION: No acute intracranial abnormalities. EXAM DESCRIPTION: CT cervical spine without contrast CLINICAL HISTORY: 29 years Female altered mental status/fall and struck head COMPARISON: None TECHNIQUE: Multiplanar imaging through the cervical spine without contrast. This exam was performed according to our departmental dose-optimization program, which includes automated exposure control, adjustment of the mA and/or kV according to patient size and/or use of iterative reconstruction technique. FINDINGS: No fracture. No subluxation. Disc spaces are preserved. Soft tissues are unremarkable. Visualized lung is clear. IMPRESSION: No acute abnormality. No fracture or subluxation.
--- NOTE | 2019-12-07 05:29 | RADIOLOGY REPORT (SQ) ---
EXAM DESCRIPTION: CT HEAD WITHOUT IV CONTRAST, CT CERVICAL SPINE WITHOUT IV CONTRAST COMPLETED DATE/TME: 12/07/2019 03:19 (accession [id number]), 12/07/2019 03:21 (accession [id number]) CLINICAL HISTORY: 29 years, Female, altered mental status/fall and struck head COMPARISON: None. Technique: Contiguous axial images of the brain were obtained without the administration of intravenous contrast. Coronal and sagittal reformats obtained and reviewed. This exam was performed according to our departmental dose-optimization program which includes use of Automated Exposure Control, adjustment of the mA and/or kV according to patient size and/or use of iterative reconstruction technique. Findings: Brain: No hemorrhage. No territorial infarct. No mass effect. No herniation. Ventricles: Within normal limits for patient's age. Bones: No acute osseous abnormality. Paranasal sinuses: Unremarkable. Mastoid air cells: Unremarkable. Soft tissues: No acute abnormality. IMPRESSION: No acute intracranial abnormalities. EXAM DESCRIPTION: CT cervical spine without contrast CLINICAL HISTORY: 29 years Female altered mental status/fall and struck head COMPARISON: None TECHNIQUE: Multiplanar imaging through the cervical spine without contrast. This exam was performed according to our departmental dose-optimization program, which includes automated exposure control, adjustment of the mA and/or kV according to patient size and/or use of iterative reconstruction technique. FINDINGS: No fracture. No subluxation. Disc spaces are preserved. Soft tissues are unremarkable. Visualized lung is clear. IMPRESSION: No acute abnormality. No fracture or subluxation.
[2019-12-07] MEDS ORDERED: NORMAL SALINE 1000 ML 1,000 ML IV ONE (05:45)
[2019-12-07] MEDS ORDERED: THIAMINE HCL 100 MG, FOLIC ACID 1 MG in NORMAL SALINE 250 ML IV ONE (05:46)
[2019-12-07 05:59] LABS: APPEARANCE,URINE CLEAR; BILIRUBIN,URINE NEGATIVE (NEGATIVE); COLOR,URINE STRAW; GLUCOSE, URINE NEGATIVE (NEGATIVE); KETONES,URINE NEGATIVE (NEGATIVE); LEUKOCYTE ESTERASE,URINE TRACE (NEGATIVE); NITRITE,URINE NEGATIVE (NEGATIVE); PROTEIN,URINE NEGATIVE (NEGATIVE); UROBILINOGEN,URINE NEGATIVE mg/dL (<2.0)
[2019-12-07] MEDS ORDERED: FOLIC ACID INJ 5 MG/1 ML 10 ML VIAL ONE (06:04)
[2019-12-07] MEDS ORDERED: THIAMINE HCL INJ 200 MG/2 ML VIAL ONE (06:05)
[2019-12-07 06:18] LABS: URINE AMPHETAMINES SCREEN NEGATIVE; URINE BARBITURATES SCREEN NEGATIVE; URINE BENZODIAZEPINES SCREEN NEGATIVE; URINE COCAINE SCREEN NEGATIVE; URINE MARIJUANA (THC) SCREEN NEGATIVE; URINE METHADONE SCREEN NEGATIVE; URINE PHENCYCLIDINE SCREEN NEGATIVE
--- NOTE | 2019-12-07 08:50 | RADIOLOGY REPORT (SQ) ---
EXAM DESCRIPTION: CHEST SINGLE VIEW COMPLETED DATE/TIME: 12/07/2019 8:33 am REASON FOR STUDY: altered mental status COMPARISON: None. NUMBER OF VIEWS: One view. TECHNIQUE: Single frontal radiographic view of the chest acquired. LIMITATIONS: None. FINDINGS: LUNGS AND PLEURA: Hyperinflated but clear. MEDIASTINUM AND HILAR STRUCTURES: No masses. Contour normal. HEART AND VASCULAR STRUCTURES: Heart normal in size. Normal vasculature. BONES: No acute findings. HARDWARE: None in the chest. OTHER: No other significant finding. IMPRESSION: NO SIGNIFICANT RADIOGRAPHIC FINDING IN THE CHEST. TECHNICAL DOCUMENTATION: JOB ID: [id number] [employer]- All Rights Reserved Reading location - IP/workstation name: [email or web address]
[2019-12-07 12:48] VITALS: BP 110/57
[2019-12-07] MEDS ORDERED: ACETAMINOPHEN 325 MG TABLET PO ONE (12:56)
--- NOTE | 2019-12-07 14:54 | PSYCHOLOGICAL NOTE ---
Psych Note - Psych Note Date seen by psych provider: 12/07/19 Time seen by psych provider: 09:30 - 1st attempt Psych Note: Reason for Consult: Alcohol Abuse Pt arrives to ED via EMS for alcohol abuse. Per EMS, pt has been drinking alcoholic beverages all night. Per EMS, pt was at [employer] and began vomiting, and fell and hit her head. EMS reports that pt hit her head a total of 3 times. Patient identifies that she has little memory of what happened over the evening. She denies any memory of attacking EMS or [facility] staff. Patient reports she is very sorry for what she did and thinks that she may have been scared and confused. Patient denies drinking is a problem and states when offered assistance in detox that she "does not drink like that." Patient denies any thoughts of wanting to harm herself or others. Patient states that she remembers being at the bar then looking up at lights then again later waking up here in [facility]. Patient then asked if she was put in a machine at all for scan. Clinician explained the patient had fallen and hit her head so they wanted to ensure she did not obtain any serious injuries. Patient states she thinks she remembers the scan then states; " I fell? I must have passed out." Patient's family joins patient at bedside per patient's request. They have no concerns with the patient returning home with them. Patient is alert and orientated to person, place, time and circumstance. Mood and affect are currently affected by patient's hangover. Patient is verbalizing feeling nauseous. Patient denies suicidal homicidal ideation. Delusions are absent behaviors congruent with an intact reality based presentation i.e. organized and linear conversation. Eye contact is poor as patient continues to cover her eyes to shielded for the light. Intellectual abilities appear to be within the average range. Attention and concentration are fair. Insight, judgment, impulse control are fair. Impression\\plan: Patient is cleared from acute psychiatric services. Patient does not meet IVC criteria per [place] GS 120 2C. Patient without at a bar last night and became heavily intoxicated. She denies having any memory of what happened or attacking EMS or [facility] staff. Patient is remorseful and apologized for her behavior. Patient declines assistance with substance abuse treatment and states that she "does not drink like that." Patient family' disclose they have no concerns. Dr. Chau was consulted to care management of this patient; attending physicians agreement with recommendations and disposition.
--- NOTE | 2019-12-07 17:36 | EKG REPORT ---
SEVERITY:- ABNORMAL ECG - SINUS RHYTHM PROBABLE LEFT ATRIAL ABNORMALITY : Confirmed by: Santana Cano 07-Dec-2019 17:35:29
== END 2019-12-07 13:10 | disposition home or self-care (01) ==
LOC: ER 02:28
DX: F10.920 Alcohol use, unspecified with intoxication, uncomplicated (principal); R55 Syncope and collapse; Z78.1 Physical restraint status
CPT/HCPCS: 93005; 99285; 96361; 96374; 96375; 36415; 80307 ×4; 82550; 83605; 83690; 85025; 81025; 80053; 81001; 84484; 71045; 70450; 72125; 93010; J3490 ×2; J3411; J7030; J7120